=== PATIENT | female | born 1985 | race American Indian/Alaskan Native ===

== ENCOUNTER 2016-09-12 01:38 | Outpatient (CLI) | payer MEDICAID ==
[2016-09-12] MEDS ORDERED: VISTARIL PO ONE (04:00)
[2016-09-12] MEDS ORDERED: VISTARIL ONE (04:07)
--- NOTE | 2016-09-12 07:47 | Ultrasound Report ---
ULTRASOUND OB LIMITED History: well being, vaginal leaking Technique: Transabdominal ultrasound with Doppler interrogation. Gestation: Single Amniotic Fluid: Normal KEVIN = 13.7 cm Heart Rate: 137 BPM
--- NOTE | 2016-09-12 07:47 | Ultrasound Report ---
ULTRASOUND BIOPHYSICAL PROFILE: History: well being Technique: Transabdominal ultrasound with Doppler interrogation. 2 - breathing movements 2 - movements 2 - posture and tone 2 - Qualitative amniotic fluid volume 8 - TOTAL SCORE OF POSSIBLE 8 Heart Rate (bpm) 136
== END 2016-09-12 04:15 | disposition home or self-care (01) ==
LOC: TRG 01:38
PROVIDERS: ATTEND Obstetrics & Gynecology Gynecology
DX: O42.92 Full-term premature rupture of membranes, unspecified as to length of time between rupture and onset of labor (principal); O62.9 Abnormality of forces of labor, unspecified; Z3A.37 37 weeks gestation of pregnancy
CPT/HCPCS: 76815; 76819; Q0177

== ENCOUNTER 2016-10-01 16:31 | Outpatient (CLI) | payer MEDICAID ==
[2016-10-01 17:47] LABS: Hematocrit 35.9 % (30.3-42.9); Mean Corpuscular HGB Conc 34 % (30-34); Mean Corpuscular Hemoglobin 32 pg (28-32); Mean Corpuscular Volume 95 fl (79-97); Platelet Count 320 K/mm3 (140-440); Red Blood Count 3.77 M/mm3 (3.65-5.03); Red Cell Distribution Width 14.2 % (13.2-15.2); White Blood Count 5.1 K/mm3 (4.5-11.0)
[2016-10-01 18:09] LABS: Alanine Aminotransferase 7 units/L (7-56)
[2016-10-01 18:22] LABS: Bacteria,Urine 3+ /HPF (Negative); Bilirubin,Urine NEG (Negative); Blood,Urine NEG (Negative); Ketones,Urine NEG (Negative); Leukocyte Esterase,Urine NEG (Negative); Mucus,Urine FEW /HPF; Nitrite,Urine NEG (Negative); Protein,Urine <15 mg/dL mg/dL (Negative); Urobilinogen,Urine < 2.0 mg/dL (<2.0)
[2016-10-01 19:17] VITALS: BP 126/90
== END 2016-10-01 19:26 | disposition home or self-care (01) ==
LOC: TRG 16:31
PROVIDERS: ATTEND Obstetrics & Gynecology Gynecology
DX: O47.1 False labor at or after 37 completed weeks of gestation (principal); Z3A.39 39 weeks gestation of pregnancy
CPT/HCPCS: 36415; 81001; 82565; 83615; 84450; 84460; 84550; 85027

== ENCOUNTER 2016-10-04 10:24 | Inpatient (IN) | payer MEDICAID ==
--- NOTE | 2016-10-04 13:14 | Ultrasound Report ---
LIMITED OB ULTRASOUND: Gestation: vogel Position: cephalic KEVIN = 11.9 cm Heart Rate: 146 BPM Estimated age 40 weeks one day. BIOPHYSICAL PROFILE: 0 - breathing movements 2 - movements 2 - posture and tone 2 - Qualitative amniotic fluid volume 6 - TOTAL SCORE OF POSSIBLE 8 Heart Rate (bpm) 147
[2016-10-04] MEDS ORDERED: LACTATED RINGERS 1,000 ML ONE ×2 (16:42→17:40)
[2016-10-04] MEDS ORDERED: LACTATED RINGERS 1,000 ML IV SCH ×2 (19:00→21:00)
[2016-10-04 19:01] LABS: Hematocrit 36.7 % (30.3-42.9); Hemoglobin 12.4 gm/dl (10.1-14.3); Mean Corpuscular HGB Conc 34 % (30-34); Mean Corpuscular Hemoglobin 32 pg (28-32); Mean Corpuscular Volume 95 fl (79-97); Platelet Count 279 K/mm3 (140-440); Red Blood Count 3.86 M/mm3 (3.65-5.03); Red Cell Distribution Width 14.2 % (13.2-15.2); White Blood Count 8.1 K/mm3 (4.5-11.0)
[2016-10-04 19:25] LABS: Alanine Aminotransferase 7 units/L (7-56); Albumin 3.5 g/dL (3.9-5); Albumin/Globulin Ratio 0.9 %; Alkaline Phosphatase 125 units/L (35-129); Anion Gap 24 mmol/L; BUN/Creatinine Ratio 13.33; Blood Urea Nitrogen 4 mg/dL (7-17); Calcium 8.8 mg/dL (8.4-10.2); Carbon Dioxide 19 mmol/L (22-30); Chloride 94.8 mmol/L (98-107); Glucose 68 mg/dL (65-100); Potassium 3.7 mmol/L (3.6-5.0); Sodium 134 mmol/L (137-145); Total Protein 7.4 g/dL (6.3-8.2)
[2016-10-04] MEDS ORDERED: SUBLIMAZE IV ONE (20:00)
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
[2016-10-04] MEDS ORDERED: XYLOCAINE 2% INFILTRATI ONE (20:21)
[2016-10-04] MEDS ORDERED: MINERAL OIL PO PRN (20:21)
[2016-10-04] MEDS ORDERED: BRETHINE IVP PRN (20:21)
[2016-10-04] MEDS ORDERED: ZOFRAN IV PRN (20:21)
[2016-10-04] MEDS ORDERED: NARCAN 0.4 MG/1 ML IV PRN (20:21)
[2016-10-04] MEDS ORDERED: ePHEDrine SULFATE IV PRN (20:21)
[2016-10-04] MEDS ORDERED: BRETHINE SUB-Q PRN (20:21)
[2016-10-04] MEDS ORDERED: PITOCin/NS 20 UNIT/1000ML DRIP 20 UNITS/1,000 ML BAG IV SCH (21:00)
[2016-10-04] MEDS: SUBLIMAZE IV PRN (23:38)
[2016-10-05] MEDS: SUBLIMAZE IV PRN (02:05)
[2016-10-05] MEDS ORDERED: PITOCin/NS 30 UNIT/500ML 30 UNITS/500 ML BAG IV SCH (03:00)
[2016-10-05] MEDS ORDERED: ePHEDrine SULFATE ONE (04:04)
[2016-10-05] MEDS ORDERED: ePHEDrine SULFATE IV PRN (04:50)
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
[2016-10-05] MEDS ORDERED: fentaNYL-BUPIV 2 MCG/ML-0.125% 200 MCG/100 ML BAG EPIDURAL SCH (05:00)
--- NOTE | 2016-10-05 07:01 | Progress Note ---
Assessment and Plan A: 31-year-old 003 at 40+1 weeks with painful contractions -Category 1 P: -AROMed with clear fluid -Continue present care -Anticipate - Patient Problems (1) 40 weeks gestation of Current Visit: Yes Status: Acute (2) Uterine contractions Current Visit: Yes Status: Acute (3) Macrosomia Current Visit: Yes Status: Suspected Subjective - Subjective Date of service: 10/05/16 Principal diagnosis: IUP at 40+ wks Interval history: Patient is status post epidural, she is 7 cm at -2 station. Category 1 tracing Patient reports: new complaints, movement normal, contractions, no loss of fluid, no vaginal bleeding Objective - Vital Signs Vital Signs: Vital Signs - 12hr 10/04/16 10/04/16 10/04/16 19:00 19:09 19:14 Temperature Pulse Rate 113 H 123 H 126 H Respiratory Rate Blood Pressure Blood Pressure [Right Arm] O2 Sat by Pulse 100 99 97 Oximetry 10/04/16 10/04/16 10/04/16 19:17 19:18 19:19 Temperature 99 F Pulse Rate 122 H 117 H Respiratory 24 Rate Blood Pressure 138/80 Blood Pressure 121/56 [Right Arm] O2 Sat by Pulse 100 Oximetry 10/04/16 10/04/16 10/04/16 19:24 19:29 19:34 Temperature Pulse Rate 120 H 122 H 118 H Respiratory Rate Blood Pressure Blood Pressure [Right Arm] O2 Sat by Pulse 100 100 99 Oximetry 10/04/16 10/04/16 10/04/16 19:39 19:44 19:49 Temperature Pulse Rate 120 H 123 H 127 H Respiratory Rate Blood Pressure Blood Pressure [Right Arm] O2 Sat by Pulse 100 100 99 Oximetry 10/04/16 10/04/16 10/04/16 19:54 19:59 20:04 Temperature Pulse Rate 124 H 129 H 124 H Respiratory Rate Blood Pressure Blood Pressure [Right Arm] O2 Sat by Pulse 100 98 98 Oximetry 10/04/16 10/04/16 10/04/16 20:09 20:14 20:19 Temperature Pulse Rate 125 H 122 H 120 H Respiratory Rate Blood Pressure Blood Pressure [Right Arm] O2 Sat by Pulse 98 100 100 Oximetry 10/04/16 10/04/16 10/04/16 20:20 20:24 20:26 Temperature Pulse Rate 120 H 117 H Respiratory 14 Rate Blood Pressure 132/77 Blood Pressure [Right Arm] O2 Sat by Pulse 100 Oximetry 10/04/16 10/04/16 10/04/16 20:29 20:34 20:39 Temperature Pulse Rate 120 H 125 H 126 H Respiratory Rate Blood Pressure Blood Pressure [Right Arm] O2 Sat by Pulse 100 100 100 Oximetry 10/04/16 10/04/16 10/04/16 20:44 20:49 20:54 Temperature Pulse Rate 124 H 119 H 119 H Respiratory Rate Blood Pressure Blood Pressure [Right Arm] O2 Sat by Pulse 100 100 99 Oximetry 10/04/16 10/04/16 10/04/16 20:59 21:04 21:06 Temperature Pulse Rate 125 H 117 H 117 H Respiratory Rate Blood Pressure 124/71 Blood Pressure [Right Arm] O2 Sat by Pulse 98 99 Oximetry 10/04/16 10/04/16 10/04/16 21:09 21:14 21:19 Temperature Pulse Rate 120 H 119 H 120 H Respiratory Rate Blood Pressure Blood Pressure [Right Arm] O2 Sat by Pulse 99 99 99 Oximetry 10/04/16 10/04/16 10/04/16 21:24 21:29 21:34 Temperature Pulse Rate 123 H 120 H 121 H Respiratory Rate Blood Pressure Blood Pressure [Right Arm] O2 Sat by Pulse 99 99 99 Oximetry 10/04/16 10/04/16 10/04/16 21:39 21:44 21:49 Temperature Pulse Rate 122 H 125 H 122 H Respiratory Rate Blood Pressure Blood Pressure [Right Arm] O2 Sat by Pulse 99 99 99 Oximetry 10/04/16 10/04/16 10/04/16 21:50 21:54 21:59 Temperature Pulse Rate 121 H 122 H 120 H Respiratory Rate Blood Pressure 131/75 Blood Pressure [Right Arm] O2 Sat by Pulse 99 99 Oximetry 10/04/16 10/04/16 10/04/16 22:04 22:09 22:14 Temperature Pulse Rate 126 H 122 H 124 H Respiratory Rate Blood Pressure Blood Pressure [Right Arm] O2 Sat by Pulse 99 98 99 Oximetry 10/04/16 10/04/16 10/04/16 22:19 22:24 22:29 Temperature Pulse Rate 124 H 126 H 127 H Respiratory Rate Blood Pressure Blood Pressure [Right Arm] O2 Sat by Pulse 99 100 98 Oximetry 0710/04/16 10/04/16 22:34 22:39 22:44 Temperature Pulse Rate 123 H 120 H 129 H Respiratory Rate Blood Pressure 137/73 Blood Pressure [Right Arm] O2 Sat by Pulse 98 99 97 Oximetry 10/04/16 10/04/16 10/04/16 22:49 22:54 22:59 Temperature Pulse Rate 124 H 124 H 117 H Respiratory Rate Blood Pressure Blood Pressure [Right Arm] O2 Sat by Pulse 99 99 97 Oximetry 10/04/16 10/04/16 10/04/16 23:04 23:09 23:14 Temperature Pulse Rate 121 H 121 H 124 H Respiratory Rate Blood Pressure Blood Pressure [Right Arm] O2 Sat by Pulse 97 97 94 Oximetry 10/04/16 10/04/16 10/04/16 23:19 23:20 23:24 Temperature Pulse Rate 114 H 117 H 123 H Respiratory Rate Blood Pressure 144/85 Blood Pressure [Right Arm] O2 Sat by Pulse 97 96 Oximetry 10/04/16 10/04/16 10/04/16 23:29 23:34 23:38 Temperature Pulse Rate 124 H 119 H Respiratory 16 Rate Blood Pressure Blood Pressure [Right Arm] O2 Sat by Pulse 97 98 Oximetry 10/04/16 10/04/16 10/04/16 23:39 23:44 23:49 Temperature Pulse Rate 116 H 121 H 120 H Respiratory Rate Blood Pressure Blood Pressure [Right Arm] O2 Sat by Pulse 98 98 98 Oximetry 10/04/16 10/04/16 10/05/16 23:54 23:59 00:04 Temperature Pulse Rate 119 H 119 H 122 H Respiratory Rate Blood Pressure Blood Pressure [Right Arm] O2 Sat by Pulse 99 98 99 Oximetry 10/05/16 10/05/16 10/05/16 00:06 00:09 00:14 Temperature Pulse Rate 120 H 119 H 122 H Respiratory Rate Blood Pressure 118/67 Blood Pressure [Right Arm] O2 Sat by Pulse 99 99 Oximetry 10/05/16 10/05/16 10/05/16 00:19 00:24 00:29 Temperature Pulse Rate 120 H 121 H 120 H Respiratory Rate Blood Pressure Blood Pressure [Right Arm] O2 Sat by Pulse 99 99 99 Oximetry 10/05/16 10/05/16 10/05/16 00:40 00:45 00:50 Temperature Pulse Rate 129 H 120 H 111 H Respiratory Rate Blood Pressure Blood Pressure [Right Arm] O2 Sat by Pulse 97 98 99 Oximetry 10/05/16 10/05/16 10/05/16 00:55 01:00 01:05 Temperature Pulse Rate 119 H 114 H 111 H Respiratory Rate Blood Pressure 116/74 Blood Pressure [Right Arm] O2 Sat by Pulse 99 99 99 Oximetry 10/05/16 10/05/16 10/05/16 01:10 01:15 01:20 Temperature Pulse Rate 123 H 115 H 117 H Respiratory Rate Blood Pressure Blood Pressure [Right Arm] O2 Sat by Pulse 100 100 100 Oximetry 10/05/16 10/05/16 10/05/16 01:25 01:30 01:35 Temperature Pulse Rate 120 H 118 H 115 H Respiratory Rate Blood Pressure Blood Pressure [Right Arm] O2 Sat by Pulse 100 100 100 Oximetry 10/05/16 10/05/16 10/05/16 01:36 01:40 01:45 Temperature Pulse Rate 117 H 118 H 117 H Respiratory Rate Blood Pressure 109/68 Blood Pressure [Right Arm] O2 Sat by Pulse 100 100 Oximetry 10/05/16 10/05/16 10/05/16 01:50 01:55 02:00 Temperature Pulse Rate 117 H 114 H 120 H Respiratory Rate Blood Pressure Blood Pressure [Right Arm] O2 Sat by Pulse 100 100 100 Oximetry 10/05/16 10/05/16 10/05/16 02:05 02:06 02:10 Temperature 98.0 F Pulse Rate 109 H 111 H Respiratory 22 20 Rate Blood Pressure Blood Pressure [Right Arm] O2 Sat by Pulse 100 100 Oximetry 10/05/16 10/05/16 10/05/16 02:15 02:20 02:22 Temperature Pulse Rate 107 H 108 H 109 H Respiratory Rate Blood Pressure 107/57 Blood Pressure [Right Arm] O2 Sat by Pulse 100 100 Oximetry 10/05/16 10/05/16 10/05/16 02:25 02:30 02:35 Temperature Pulse Rate 107 H 106 H 110 H Respiratory Rate Blood Pressure Blood Pressure [Right Arm] O2 Sat by Pulse 100 100 100 Oximetry 10/05/16 10/05/16 10/05/16 02:40 02:45 02:50 Temperature Pulse Rate 113 H 106 H 107 H Respiratory Rate Blood Pressure Blood Pressure [Right Arm] O2 Sat by Pulse 100 100 100 Oximetry 10/05/16 10/05/16 10/05/16 02:55 03:00 03:05 Temperature Pulse Rate 106 H 106 H 108 H Respiratory Rate Blood Pressure Blood Pressure [Right Arm] O2 Sat by Pulse 100 100 100 Oximetry 10/05/16 10/05/16 10/05/16 03:07 03:10 03:15 Temperature Pulse Rate 108 H 99 H 106 H Respiratory Rate Blood Pressure 139/63 Blood Pressure [Right Arm] O2 Sat by Pulse 99 99 Oximetry 10/05/16 10/05/16 10/05/16 03:20 03:25 03:30 Temperature Pulse Rate 105 H 105 H 109 H Respiratory Rate Blood Pressure Blood Pressure [Right Arm] O2 Sat by Pulse 100 100 98 Oximetry 10/05/16 10/05/16 10/05/16 03:35 03:40 03:53 Temperature Pulse Rate 109 H 108 H 111 H Respiratory Rate Blood Pressure 121/72 Blood Pressure [Right Arm] O2 Sat by Pulse 99 99 Oximetry 10/05/16 10/05/16 10/05/16 03:54 03:59 04:04 Temperature Pulse Rate 111 H 107 H 105 H Respiratory Rate Blood Pressure Blood Pressure [Right Arm] O2 Sat by Pulse 96 96 97 Oximetry 10/05/16 10/05/16 10/05/16 04:10 04:13 04:15 Temperature Pulse Rate 105 H 104 H 97 H Respiratory Rate Blood Pressure 133/72 Blood Pressure [Right Arm] O2 Sat by Pulse 98 98 Oximetry 10/05/16 10/05/16 10/05/16 04:16 04:18 04:19 Temperature Pulse Rate 100 H 110 H 106 H Respiratory Rate Blood Pressure 150/81 133/65 135/64 Blood Pressure [Right Arm] O2 Sat by Pulse Oximetry 10/05/16 10/05/16 10/05/16 04:20 04:21 04:23 Temperature Pulse Rate 96 H 109 H 95 H Respiratory Rate Blood Pressure 124/72 116/69 Blood Pressure [Right Arm] O2 Sat by Pulse 99 94 Oximetry 10/05/16 10/05/16 10/05/16 04:25 04:27 04:29 Temperature Pulse Rate 111 H 105 H 108 H Respiratory Rate Blood Pressure 121/72 120/72 121/72 Blood Pressure [Right Arm] O2 Sat by Pulse 98 Oximetry 10/05/16 10/05/16 10/05/16 04:30 04:35 04:36 Temperature Pulse Rate 110 H 112 H 109 H Respiratory Rate Blood Pressure 122/84 Blood Pressure [Right Arm] O2 Sat by Pulse 99 98 Oximetry 10/05/16 10/05/16 10/05/16 04:37 04:39 04:40 Temperature Pulse Rate 100 H 103 H 103 H Respiratory Rate Blood Pressure 117/65 124/70 Blood Pressure [Right Arm] O2 Sat by Pulse 98 Oximetry 10/05/16 10/05/16 10/05/16 04:42 04:43 04:45 Temperature Pulse Rate 108 H 110 H 108 H Respiratory Rate Blood Pressure 111/66 123/69 118/59 Blood Pressure [Right Arm] O2 Sat by Pulse 97 Oximetry 10/05/16 10/05/16 10/05/16 04:47 04:49 04:50 Temperature Pulse Rate 104 H 107 H 108 H Respiratory Rate Blood Pressure 113/59 110/56 Blood Pressure [Right Arm] O2 Sat by Pulse 100 Oximetry 10/05/16 10/05/16 10/05/16 04:51 04:53 04:55 Temperature Pulse Rate 112 H 110 H 108 H Respiratory Rate Blood Pressure 115/64 118/68 Blood Pressure [Right Arm] O2 Sat by Pulse 100 Oximetry 10/05/16 10/05/16 10/05/16 04:56 04:58 05:00 Temperature Pulse Rate 112 H 113 H 106 H Respiratory Rate Blood Pressure 112/70 110/56 112/61 Blood Pressure [Right Arm] O2 Sat by Pulse 100 Oximetry 10/05/16 10/05/16 10/05/16 05:02 05:03 05:05 Temperature Pulse Rate 107 H 108 H 109 H Respiratory Rate Blood Pressure 115/58 106/55 111/55 Blood Pressure [Right Arm] O2 Sat by Pulse 100 Oximetry 10/05/16 10/05/16 10/05/16 05:08 05:10 05:13 Temperature Pulse Rate 112 H 105 H 109 H Respiratory Rate Blood Pressure 110/56 117/71 Blood Pressure [Right Arm] O2 Sat by Pulse 100 Oximetry 10/05/16 10/05/16 10/05/16 05:15 05:20 05:25 Temperature Pulse Rate 106 H 94 H 99 H Respiratory Rate Blood Pressure 124/67 Blood Pressure [Right Arm] O2 Sat by Pulse 99 100 100 Oximetry 10/05/16 10/05/16 10/05/16 05:30 05:35 05:40 Temperature Pulse Rate 95 H 102 H 103 H Respiratory Rate Blood Pressure Blood Pressure [Right Arm] O2 Sat by Pulse 100 100 100 Oximetry 10/05/16 10/05/16 10/05/16 05:45 05:48 05:50 Temperature Pulse Rate 98 H 102 H 97 H Respiratory Rate Blood Pressure 129/81 Blood Pressure [Right Arm] O2 Sat by Pulse 100 99 Oximetry 10/05/16 10/05/16 10/05/16 05:55 06:00 06:03 Temperature Pulse Rate 99 H 107 H 109 H Respiratory Rate Blood Pressure 133/67 Blood Pressure [Right Arm] O2 Sat by Pulse 98 99 Oximetry 10/05/16 10/05/16 10/05/16 06:05 06:10 06:15 Temperature Pulse Rate 105 H 105 H 97 H Respiratory Rate Blood Pressure Blood Pressure [Right Arm] O2 Sat by Pulse 98 96 97 Oximetry 10/05/16 10/05/16 10/05/16 06:19 06:20 06:25 Temperature Pulse Rate 110 H 98 H 102 H Respiratory Rate Blood Pressure Blood Pressure [Right Arm] O2 Sat by Pulse 89 100 99 Oximetry 10/05/16 10/05/16 10/05/16 06:30 06:35 06:40 Temperature Pulse Rate 102 H 102 H 103 H Respiratory Rate Blood Pressure Blood Pressure [Right Arm] O2 Sat by Pulse 99 100 100 Oximetry 10/05/16 10/05/16 10/05/16 06:45 06:47 06:50 Temperature Pulse Rate 99 H 103 H 99 H Respiratory Rate Blood Pressure 133/76 Blood Pressure [Right Arm] O2 Sat by Pulse 100 100 Oximetry 10/05/16 06:55 Temperature Pulse Rate 111 H Respiratory Rate Blood Pressure Blood Pressure [Right Arm] O2 Sat by Pulse 100 Oximetry - Exam FHR: category 1 Cervical Dilatation: 7 station: -2 - Labs Labs: Abnormal Labs 10/04/16 17:00 Sodium 134 L Chloride 94.8 L Carbon Dioxide 19 L BUN 4 L Creatinine 0.3 L Albumin 3.5 L Laboratory Results - last 24 hr 10/04/16 10/04/16 10/04/16 17:00 17:00 17:00 WBC 8.1 RBC 3.86 Hgb 12.4 Hct 36.7 MCV 95 MCH 32 MCHC 34 RDW 14.2 Plt Count 279 Sodium 134 L Potassium 3.7 Chloride 94.8 L Carbon Dioxide 19 L Anion Gap 24 BUN 4 L Creatinine 0.3 L Estimated GFR > 60 BUN/Creatinine Ratio 13.33 Glucose 68 Calcium 8.8 Total Bilirubin 0.90 AST 15 ALT 7 Alkaline Phosphatase 125 Total Protein 7.4 Albumin 3.5 L Albumin/Globulin Ratio 0.9 Blood Type O POSITIVE Antibody Screen TNR DESIREE Antibody Screen Negative
[2016-10-05] MEDS ORDERED: CYTOTEC ONE (07:30)
[2016-10-05] MEDS ORDERED: CYTOTEC PR ONE ×2 (07:35→07:47)
--- NOTE | 2016-10-05 07:45 | Procedure Note ---
OB Delivery Note - Delivery Date of Delivery: 10/05/16 Surgeon: ROCK RED Estimated blood loss: 200cc - Vaginal Delivery presentation: vertex Delivery position: OA Delivery induction: oxytocin Delivery augmentation: rupture of membranes, pitocin Delivery monitor: external FHT, external uterine Route of delivery: Delivery placenta: spontaneous Delivery cord: nuchal cord, 3 umbilical vessels Episiotomy: none Delivery laceration: none Anesthesia: epidural - A at 1 minute: 8 at 5 minutes: 9 Infant Gender: Male (Del @ 07:35, weight is 8#1 or 3661 g)
[2016-10-05] MEDS ORDERED: TUCKS PAD TP PRN (07:47)
[2016-10-05] MEDS ORDERED: PHENERGAN PO PRN (07:47)
[2016-10-05] MEDS ORDERED: DULCOLAX PR PRN (07:47)
[2016-10-05] MEDS ORDERED: ANUCORT-HC PR PRN (07:47)
[2016-10-05] MEDS ORDERED: BENADRYL PO PRN (07:47)
[2016-10-05] MEDS ORDERED: TYLENOL PO PRN (07:47)
[2016-10-05] MEDS ORDERED: MILK OF MAGNESIA PO PRN (07:47)
[2016-10-05] MEDS ORDERED: LANSINOH TP PRN (07:47)
[2016-10-05] MEDS ORDERED: PHENERGAN PR PRN (07:47)
[2016-10-05] MEDS ORDERED: ZOFRAN IV PRN (07:47)
[2016-10-05] MEDS ORDERED: SODIUM CHLORIDE FLUSH SYRINGE 10 ML IV NR (08:00)
[2016-10-05 09:54] LABS: Urine Drugs of Abuse Note Disclamer
[2016-10-05] MEDS: MOTRIN PO SCH ×2 (16:10→22:44)
[2016-10-05] MEDS: PRENATAL VITAMIN PO SCH (16:10)
[2016-10-05] MEDS: COLACE PO SCH ×2 (16:10→22:44)
[2016-10-05] MEDS: FEOSOL PO SCH ×2 (16:10→22:44)
[2016-10-05 21:53] LABS: Hematocrit 32.6 % (30.3-42.9)
[2016-10-06] MEDS: SENOKOT S PO SCH ×2 (02:12→22:00)
[2016-10-06] MEDS: MOTRIN PO SCH ×3 (06:10→18:15)
--- NOTE | 2016-10-06 08:59 | Progress Note ---
Subjective Date of service: 10/06/16 Principal diagnosis: IUP at 40+ wks Interval history: The epidural catheter has been removed. Patient is doing well. Objective - Constitutional Vitals: Vital Signs - 12hr 10/05/16 23:00 Temperature 97.6 F Pulse Rate [ 85 From Monitor] Respiratory 18 Rate Blood Pressure 108/63 [Right Arm] - Labs CBC & Chem 7: 10/05/16 20:51 10/04/16 17:00
--- NOTE | 2016-10-06 09:47 | Progress Note ---
Assessment and Plan PPD# 1 s/p Doing well P: -Continue routine care -Anticipate discharge in 24-48 hours - Patient Problems (1) (normal spontaneous vaginal delivery) Current Visit: Yes Status: Acute (2) 40 weeks gestation of Current Visit: Yes Status: Acute (3) Uterine contractions Current Visit: Yes Status: Acute (4) Macrosomia Current Visit: Yes Status: Suspected Subjective - Subjective Date of service: 10/06/16 Principal diagnosis: PPD# 1 s/p Interval history: Patient seen and examined, stable doing well. No issues Patient reports: appetite normal, voiding normally, pain well controlled, flatus , ambulating normally, no dizzy ambulation, no nauseated Mobile: doing well Objective - Vital Signs Latest vital signs: Vital Signs Temp Pulse Resp BP 10/05/16 23:00 97.6 F 85 18 108/63 10/05/16 17:00 98.7 F 82 18 125/77 Intake and Output 10/05/16 10/06/16 10/06/16 22:59 06:59 14:59 Intake Total 730 Output Total 1700 Balance -970 Intake: IV 250 PITOCin/NS 20 UNIT/1000ML 250 DRIP 20 units In 1,000 ml @ 125 mls/hr IV DIRECT SHAJI Rx#:[id number] Oral 480 Output: Urine 1700 Void 1700 Other: Total, Intake Amount 480 Total, Output Amount 800 - Exam Abdomen: Present: normal appearance, soft. Absent: distention, tenderness, guarding, rigidity Uterus: Present: fundal height below umbilicus. Absent: tenderness Extremities: Present: normal
--- NOTE | 2016-10-06 09:48 | Discharge Summary ---
Providers - Providers Date of Admission: 10/04/16 10:40 Date of discharge: 10/07/16 Attending physician: ROCK RED Primary care physician: ROCK RED Hospitalization Reason for admission: active labor Delivery: Episiotomy: none Laceration: none Other procedures: none complications: none Discharge diagnosis: IUP at term delivered baby: male Hospital course: Uncomplicated hospital course Condition at discharge: Good Disposition: DC-01 TO HOME OR SELFCARE - Discharge Diagnoses (1) (normal spontaneous vaginal delivery) Status: Acute (2) 40 weeks gestation of Status: Acute (3) Uterine contractions Status: Acute (4) Macrosomia Status: Suspected Plan - Discharge Medications Prescriptions: HYDROcodone/APAP 5-325 [[place] 5/325] 1 each PO Q6HR PRN #7 tablet PRN Reason: Pain Ibuprofen [Motrin 600 MG tab] 600 mg PO Q8H PRN #30 tablet PRN Reason: Pain Multivitamin with Iron [Multivitamins with Iron] 1 each PO DAILY #30 tablet - Provider Discharge Summary Activity: no sex for 6 weeks, no heavy lifting 4 weeks, no strenuous exercise Diet: routine Additional instructions: [] Smoking cessation referral if applicable(refer to patient education folder for contact #) [] Refer to [facility] Booklet Call your doctor immediately for: * Fever > 100.5 * Heavy vaginal bleeding ( >1 pad per hour) * Severe persistent headache * Shortness of breath * Reddened, hot, painful area to leg or breast * Drainage or odor from incision. * Keep incision clean and dry at all times and follow doctor's instructions regarding bathing/showering - Follow up plan Follow up: ROCK RED MD [Primary Care Provider] - 6 Weeks
[2016-10-06] MEDS: FEOSOL PO SCH ×2 (12:40→22:01)
[2016-10-06] MEDS: COLACE PO SCH ×2 (12:40→22:01)
[2016-10-06] MEDS: PRENATAL VITAMIN PO SCH (12:40)
[2016-10-07] MEDS: MOTRIN PO SCH ×4 (00:55→18:37)
--- NOTE | 2016-10-07 09:08 | Admit Criteria Form ---
Admission Criteria Documentation: OBSTETRIC AND GYNECOLOGIC DISEASE GRG Clinical Indications for Admission to Inpatient Care (Place 'X' for any and all applicable criteria): Hospital admission is needed for appropriate care of the patient because of 1 or more of the following (1)(2)(3): [ ]I. Hemodynamic instability, as indicated by 1 or more of the following (1)( 2)(3)(4)(5): [ ]a) Vital signs or other findings not as expected for chronic patient condition or baseline [ ]b) Instability indicated by 1 or more of the following: [ ]i) Hypotension [ ]ii) Symptomatic tachycardia unresponsive to treatment (eg, analgesia, fluids, sedation as indicated) [ ]iii) Inadequate perfusion indicated by 1 or more of the following: [ ]A. Lactic acidosis (greater than 2 mmol/ L) [ ]B. New abnormal capillary refill ( greater than 3 seconds) [ ]C. Reduced urine output [ ]D. New altered mental status [ ]iv) Orthostatic vital sign changes unresponsive to treatment (eg, fluids) [ ]v) Multiple IV fluid boluses required to maintain adequate blood pressure or perfusion [ ]vi) IV inotropic or vasopressor medication required to maintain adequate blood pressure or perfusion [ ]II. Obstetric infection requiring hospitalization indicated by 1 or more of the following(13)(14): [ ]a) Chorioamnionitis [ ]b) Endometritis (except mild endometritis) [ ]c) Pelvic abscess [ ]d) Peritonitis [ ]e) Septic pelvic thrombophlebitis [ ]III. Amniotic fluid or pulmonary embolism(4)(5)(6) [ ]IV. Suspected peritonitis or ectopic requiring monitoring beyond scope of 24 hours or observation care(7)(8) [ ]V. compromise requiring hospitalization indicated by ALL of the following(9)(10): [ ]a) compromise indicated by 1 or more of the following(11): [ ]i) Abnormal heart rate monitoring [ ]ii) Abnormal contraction stress test [ ]iii) Abnormal biophysical profile [ ]iv) Abnormal Doppler flow in vessels (ie, Doppler velocimetry) (12) [ ]b) Persistence of compromise indicators during evaluation and observation monitoring [ ]. Ovarian hyperstimulation syndrome requiring hospitalization[A] indicated by ALL of the following(15): [ ]a) Recent ovarian stimulation with gonadotropins, or evidence on ultrasound of spontaneous emergence of large number of ovarian follicles [ ]b) Evidence of severe ovarian hyperstimulation syndrome indicated by 1 or more of the following: [ ]i) Abdominal pain unresponsive to oral therapy [ ]ii) Acute respiratory distress syndrome [ ]iii) Electrolyte imbalance ( eg, hyponatremia, hyperkalemia) [ ]iv) Elevated liver enzymes [ ]v) Evidence of thromboembolism [ ]vi) Hemoconcentration (hematocrit greater than 45 % (0.45)) [ ]vii) Inability to maintain oral intake adequate to prevent hemoconcentration [ ]viii) Marked hypotension from baseline (eg, SBP 20 mmHg below patients usual pressure) [ ]ix) Oliguria or anuria [ ]x) Ovarian torsion [ ]xi) Pleural or pericardial effusion on x-ray or echocardiogram [ ]xii) Rapid increase in serum creatinine to greater than 1.2 mg/dL (106 micromoles/L) or creatinine clearance less than 50 mL/min/1.73m2 (0.84 mL/ sec/1.73m2) [ ]xiii) Ruptured ovarian cyst with hemorrhage [ ]xiv) Severe abdominal pain or peritoneal signs [ ]xv) Tense ascites that cannot be managed with paracentesis in outpatient setting [ ]VII.Pelvic infection requiring hospitalization indicated by 1 or more of the following (16): [ ]a) Outpatient treatment has failed or is not appropriate (eg, inpatient monitoring required) [ ]b) Pelvic abscess [ ]c) Surgical emergency cannot be excluded (eg, rigid abdomen) [ ]d) Vomiting precluding outpatient and observation care management VIII. loss complications requiring inpatient medical treatment indicated by 1 or more of the following (4)(7)(9): [ ]a) Fever [ ]b) Peritonitis [ ]c) Sepsis [ ]d) Severe abdominal pain [ ]IX. or patient requiring monitoring for severe heart failure, pulmonary disease, or other comorbid condition (eg, peripartum cardiomyopathy) (4)(17) [ ]X. patient with rupture of membranes requiring hospitalization indicated by ANY ONE of the following: [ ]a) Chorioamnionitis, cloudy amniotic fluid, or other evidence of infection [ ]b) compromise or other need for monitoring (11) [ ]c) Gestation longer than 23 weeks and ANY ONE of the following: [ ]i) Abnormal (noncephalic) presentation [ ]ii) Inadequate home environment (eg, home too far from hospital, unable to rapidly return to hospital) [ ]d) Temperature greater than 100.4 degrees F (38 degrees C)( oral) [ ]e) Threatened labor requiring monitoring beyond scope (eg, over 24 hours) of observation Care [ ] XI. complications, including severe lacerations, infections, or retained placenta (19) [ ] XII.Uterine bleeding with high-risk features indicated by ANY ONE of the following (4): [ ]a) Active major hemorrhage (eg, hemorrhage) [ ]b) Coagulopathy with active bleeding [ ]c) Gestational trophoblastic disease (eg, molar ) (20 ) [ ]d) (longer than 23 weeks) and ANY ONE of the following: [ ]i) Pain [ ]ii) Placental abruption, known or suspected [ ]iii) Placenta accrete, known or suspected(21) [ ]iv) Placenta previa, known or suspected [ ]v) Vasa previa [ ]e) Severe anemia [X]XIII. Obstetric or Gynecologic Disease, condition or symptom for which ANY ONE of the following: [ ]a) Emergency and observation care have failed or are not considered appropriate ( Also use General Criteria: Observation Care Criteria as appropriate) [X]b) Presence of a General Admission Criteria or Pediatric General Admission Criteria The original [facility] content created by [facility] has been revised. The portions of the content which have been revised are identified through the use of italic text or in bold, and [facility] has neither reviewed nor approved the modified material.All other unmodified content is copyright [facility]. Please see references footnoted in the original [facility] edition 2016 Admission Criteria Met: Yes
[2016-10-07] MEDS: PRENATAL VITAMIN PO SCH (10:00)
[2016-10-07] MEDS: FEOSOL PO SCH (10:00)
[2016-10-07] MEDS: COLACE PO SCH (10:01)
[2016-10-07 17:59] VITALS: BP 118/70
== END 2016-10-07 18:45 | disposition home or self-care (01) | DRG 775 ==
LOC: TRG 10:24 → LD 10:40 → OB 10-05 09:15 → OBSVTOIN 10-07 14:14
PROVIDERS: ADMIT Obstetrics & Gynecology Gynecology; ATTEND Obstetrics & Gynecology Gynecology
PROC: 10E0XZZ Delivery of Products of Conception, External Approach (ICD-10-PCS; principal; 2016-10-05)
PROC: 3E033VJ Introduction of Other Hormone into Peripheral Vein, Percutaneous Approach (ICD-10-PCS; 2016-10-05)
PROC: 10907ZC Drainage of Amniotic Fluid, Therapeutic from Products of Conception, Via Natural or Artificial Opening (ICD-10-PCS; 2016-10-05)
PROC: 3E0R3CZ (ICD-10-PCS; 2016-10-05)
PROC: 00HU33Z Insertion of Infusion Device into Spinal Canal, Percutaneous Approach (ICD-10-PCS; 2016-10-05)
DX: O69.81X0 Labor and delivery complicated by cord around neck, without compression, not applicable or unspecified (principal); O62.9 Abnormality of forces of labor, unspecified; O36.63X0 Maternal care for excessive fetal growth, third trimester, not applicable or unspecified; O99.344 Other mental disorders complicating childbirth; F32.9 Major depressive disorder, single episode, unspecified; O99.214 Obesity complicating childbirth; E66.01 Morbid (severe) obesity due to excess calories; Z3A.40 40 weeks gestation of pregnancy; Z37.0 Single live birth; Z68.41 Body mass index [BMI] 40.0-44.9, adult
CPT/HCPCS: 36415; 76815; 76816; 76819; 80053; 80307; 85014; 85018; 85027; 86850; 86900; 86901; 99211; A6250; G0378; G0463; J2405; J2590; J3010; J7120

== ENCOUNTER 2017-05-04 08:44 | Emergency (ER) | payer MEDICAID | END 2017-05-04 09:45 | disposition left against medical advice (07) | LOC: ED 08:44 | DX: L02.92 Furuncle, unspecified (principal); Z53.21 Procedure and treatment not carried out due to patient leaving prior to being seen by health care provider ==

== ENCOUNTER 2018-12-06 19:41 | Outpatient (CLI) | payer MEDICAID ==
[2018-12-06 20:14] VITALS: BP 128/69
[2018-12-06] MEDS ORDERED: LACTATED RINGERS 500 ML IV ONE (20:41)
[2018-12-06] MEDS ORDERED: FLEET ENEMA PR ONE (21:00)
[2018-12-07] MEDS ORDERED: LACTATED RINGERS 1,000 ML ONE (00:03)
== END 2018-12-07 00:26 | disposition home or self-care (01) ==
LOC: TRG 19:41
PROVIDERS: ATTEND Obstetrics & Gynecology
DX: O99.612 Diseases of the digestive system complicating pregnancy, second trimester (principal); K59.00 Constipation, unspecified; O47.02 False labor before 37 completed weeks of gestation, second trimester; O09.522 Supervision of elderly multigravida, second trimester; Z3A.26 26 weeks gestation of pregnancy; Z87.891 Personal history of nicotine dependence
CPT/HCPCS: 99212; G0463; J7120

== ENCOUNTER 2019-02-01 09:43 | Outpatient (CLI) | payer MEDICAID ==
[2019-02-01 10:42] LABS: Bilirubin,Urine NEG (Negative); Blood,Urine NEG (Negative); Color,Urine Yellow (Yellow); Mucus,Urine FEW /HPF; Protein,Urine <15 mg/dL mg/dL (Negative); Urobilinogen,Urine < 2.0 mg/dL (<2.0)
--- NOTE | 2019-02-01 14:34 | Ultrasound Report ---
Limited OB Ultrasound Biophysical profile HISTORY: NRFHT. TECHNIQUE: Grayscale and color Doppler imaging performed. COMPARISON: No recent relevant ultrasound is available for comparison. FINDINGS: There is a single intrauterine gestation which is cephalic in presentation. KEVIN is 8.5 cm. Heart rate is 138 bpm. On biophysical profile, this fetus received a score of 2 out of 2 for breathing movement, movem ent, posture/tone, and qualitative KEVIN. Heart rate was 142 bpm. Total score was 8 out of 8. IMPRESSION: 1. Single viable intrauterine gestation as above. 2. Normal biophysical profile. Signer Name: Lj Meyers MD Signed: 02/01/2019 2:29 PM Workstation Name: [id number]
== END 2019-02-01 13:22 | disposition home or self-care (01) ==
LOC: TRG 09:43
PROVIDERS: ATTEND Obstetrics & Gynecology
DX: O47.03 False labor before 37 completed weeks of gestation, third trimester (principal); Z3A.34 34 weeks gestation of pregnancy
CPT/HCPCS: 59025; 76815; 76819; 81001

== ENCOUNTER 2019-02-12 17:14 | Outpatient (CLI) | payer MEDICAID ==
[2019-02-12 17:53] VITALS: BP 121/80
[2019-02-12] MEDS ORDERED: LACTATED RINGERS 500 ML IV ONE (18:28)
--- NOTE | 2019-02-13 00:09 | Ultrasound Report ---
ULTRASOUND BIOPHYSICAL PROFILE INDICATION / CLINICAL INFORMATION: LEAKING FLUID. COMPARISON: None available. FINDINGS: BREATHING MOVEMENT = 2 GROSS BODY MOVEMENT = 2 TONE = 2 QUALITATIVE AMNIOTIC FLUID VOLUME = 2 TOTAL BIOPHYSICAL SCORE = 10/22 AMNIOTIC FLUID INDEX (cm) = 10.3 PRESENTATION: Cephalic. HEART RATE (beats per minute): 133 IMPRESSION: 1. biophysical profile = 10/22 Signer Name: Tejinder Coleman MD Signed: 02/13/2019 12:04 AM Workstation Name: [email or web address]
== END 2019-02-12 21:28 | disposition home or self-care (01) ==
LOC: TRG 17:14
PROVIDERS: ATTEND Obstetrics & Gynecology
DX: O42.913 Preterm premature rupture of membranes, unspecified as to length of time between rupture and onset of labor, third trimester (principal); O62.9 Abnormality of forces of labor, unspecified; Z3A.36 36 weeks gestation of pregnancy; Z87.891 Personal history of nicotine dependence
CPT/HCPCS: 59025; 76815; 76819; J7120; 96360; 96361

== ENCOUNTER 2019-02-27 05:07 | Outpatient (CLI) | payer MEDICAID ==
[2019-02-27 07:30] LABS: Bacteria,Urine 2+ /HPF (Negative); Bilirubin,Urine NEG (Negative); Blood,Urine NEG (Negative); Color,Urine Yellow (Yellow); Hyaline Casts,Urine 1 /LPF; Mucus,Urine FEW /HPF; Protein,Urine <15 mg/dL mg/dL (Negative); Urobilinogen,Urine < 2.0 mg/dL (<2.0)
[2019-02-27 07:47] LABS: Hematocrit 35.4 % (30.3-42.9); Hemoglobin 12.1 gm/dl (10.1-14.3); Mean Corpuscular HGB Conc 34 % (30-34); Mean Corpuscular Volume 94 fl (79-97); Platelet Count 256 K/mm3 (140-440); Red Blood Count 3.76 M/mm3 (3.65-5.03)
[2019-02-27 07:57] VITALS: BP 132/94
[2019-02-27 08:00] LABS: Alanine Aminotransferase < 5 units/L (7-56); Albumin 3.4 g/dL (3.9-5); BUN/Creatinine Ratio 17; Blood Urea Nitrogen 5 mg/dL (7-17); Calcium 8.5 mg/dL (8.4-10.2); Hemolysis Index 0
[2019-02-27 08:01] LABS: Uric Acid 2.4 mg/dL (3.5-7.6)
--- NOTE | 2019-03-01 07:05 | Event Note ---
Date: 02/27/19 Brief note for 02/27/19 (late entry): Patient is a [facility] patient who came in to L&D triage on 02/27/19 at 38 weeks gestation complaining of diarrhea and contractions. I saw patient very briefly and ordered initial labs and EFM. I came back to see patient again but patient had already been discharged home by MD according to triage nurse.
== END 2019-02-27 08:50 | disposition home or self-care (01) ==
LOC: TRG 05:07
PROVIDERS: ATTEND Obstetrics & Gynecology
DX: O62.9 Abnormality of forces of labor, unspecified (principal); Z3A.38 38 weeks gestation of pregnancy
CPT/HCPCS: 36415; 80053; 81001; 83615; 84550; 85027

== ENCOUNTER 2019-03-03 13:37 | Outpatient (CLI) | payer MEDICAID ==
[2019-03-03 16:07] LABS: Bilirubin,Urine NEG (Negative); Blood,Urine NEG (Negative); Color,Urine Yellow (Yellow); Mucus,Urine FEW /HPF; Protein,Urine <15 mg/dL mg/dL (Negative); Urobilinogen,Urine < 2.0 mg/dL (<2.0)
[2019-03-03 16:10] LABS: Hematocrit 35.2 % (30.3-42.9); Hemoglobin 12.3 gm/dl (10.1-14.3); Mean Corpuscular HGB Conc 35 % (30-34); Mean Corpuscular Volume 94 fl (79-97); Platelet Count 298 K/mm3 (140-440); Red Blood Count 3.73 M/mm3 (3.65-5.03); Red Cell Distribution Width 13.8 % (13.2-15.2)
[2019-03-03] MEDS ORDERED: ACETAMINOPHEN 325 MG TAB PO ONE (16:10)
[2019-03-03 16:15] LABS: Alanine Aminotransferase 6 units/L (7-56); Uric Acid 2.7 mg/dL (3.5-7.6)
[2019-03-03 16:58] VITALS: BP 128/74
== END 2019-03-03 17:22 | disposition home or self-care (01) ==
LOC: TRG 13:37
PROVIDERS: ATTEND Obstetrics & Gynecology
DX: O47.1 False labor at or after 37 completed weeks of gestation (principal); O09.513 Supervision of elderly primigravida, third trimester; Z3A.39 39 weeks gestation of pregnancy
CPT/HCPCS: 36415; 59025; 81001; 82565; 83615; 84450; 84460; 84550; 85027

== ENCOUNTER 2019-03-11 12:15 | Inpatient (IN) | payer MEDICAID ==
--- NOTE | 2019-03-11 15:35 | History and Physical Report ---
History of Present Illness Date of examination: 03/11/19 Chief complaint: Labor History of present illness: Pt is a 33 yo BF EDC 03/09/19; EGA 40 2/7 weeks presents to L&D complaining of RUC's q 3-5 mins. She received care at [facility] since 15 weeks and co-managed by [facility] for AMA and cardiac issues. records are available and GBS is Negative. Past History Past Medical History: no pertinent history Past Surgical History: no surgical history Family/Genetic History: other (Hepatitis) Social history: no significant social history, single - Obstetrical History Expected Date of Delivery: 03/09/19 Actual Gestation: 40 Week(s) 2 Day(s) : 6 Medications and Allergies Allergies Allergy/AdvReac Type Severity Reaction Status Date / Time No Known Allergies Allergy Verified 02/27/19 07:01 Home Medications Medication Instructions Recorded Confirmed Last Taken Type Folic Acid 1 tab PO DAILY 09/07/14 03/03/19 Unknown History Ferrous Sulfate [Feosol 325 MG tab] 325 mg PO BID #60 tablet 09/10/14 03/03/19 Unknown Rx [id number]/Iron Fum/Folic/Docusate 1 each PO QDAY #30 tablet 09/10/14 03/03/19 03/02/19 Rx [ 19 Tablet] HYDROcodone/APAP 5-325 [[place] 1 each PO Q6HR PRN #7 tablet 10/05/16 03/03/19 Unknown Rx 5/325] Ibuprofen [Motrin 600 MG tab] 600 mg PO Q8H PRN #30 tablet 10/05/16 03/03/19 Unknown Rx Multivitamin with Iron 1 each PO DAILY #30 tablet 10/05/16 03/03/19 Unknown Rx [Multivitamins with Iron] Review of Systems All systems: negative - Vital Signs Vital signs: Vital Signs Temp Resp BP 98.3 F 18 133/79 03/11/19 13:05 03/11/19 13:05 03/11/19 13:05 Temp Pulse Resp BP Pulse Ox 98.3 F 87 18 133/79 97 03/11/19 13:05 03/11/19 13:39 03/11/19 13:05 03/11/19 13:05 03/11/19 13:39 - Physical Exam Breasts: Positive: deferred Abdomen: Positive: normal appearance Genitourinary (Female): Positive: normal external genitalia Uterus: Positive: enlarged Extremities: Positive: normal - Obstetrical FHR: category 1 Uterine Contraction Monitor Mode: External Cervical Dilatation: 3 (per nurse) Cervical Effacement Percentage: 70 (per nurse) station: -2 Uterine Contraction Pattern: Regular Uterine Tone Measurement Phase: Contraction Uterine Contraction Intensity: Moderate Results Result Diagrams: 03/11/19 15:33 All other labs normal. Assessment and Plan - Patient Problems (1) 40 weeks gestation of Onset Date: 03/11/19 Current Visit: No Status: Acute Plan to address problem: A: IUP @ 40 2/7 week in labor AMA P: Admit to L&D for expectant vaginal delivery (2) AMA (advanced maternal age) multigravida 35+ Onset Date: 03/11/19 Current Visit: Yes Status: Acute Qualifiers: Trimester: third trimester Qualified Code(s): O09.523 - Supervision of elderly multigravida, third trimester
[2019-03-11] MEDS ORDERED: MINERAL OIL 30 ML ORAL LIQD PO PRN (15:40)
[2019-03-11] MEDS ORDERED: TERBUTALINE 1 MG/1 ML INJ SUB-Q PRN (15:40)
[2019-03-11] MEDS ORDERED: fentaNYL 100 MCG/2 ML INJ IV PRN (15:40)
[2019-03-11] MEDS ORDERED: TERBUTALINE 1 MG/1 ML INJ IVP PRN (15:40)
[2019-03-11] MEDS ORDERED: ePHEDrine SULFATE 50 MG/1 ML INJ IV PRN (15:40)
[2019-03-11] MEDS ORDERED: LIDOCAINE (2%) 20 MG/1 ML VIAL 20 ML MDV INFILTRATI ONE ×2 (15:40→19:53)
[2019-03-11] MEDS ORDERED: ONDANSETRON 4 MG/2 ML INJ IV PRN ×2 (15:40→20:05)
[2019-03-11] MEDS ORDERED: BUTORPHANOL 2 MG/1 ML INJ IV PRN (15:40)
[2019-03-11] MEDS ORDERED: OXYTOCIN 20 UNIT/1000ML DRIP 20 UNITS/1,000 ML BAG IV SCH ×3 (16:00→21:00)
[2019-03-11] MEDS ORDERED: OXYTOCIN DRIP 30 UNITS/500 ML BAG IV SCH ×2 (16:00)
[2019-03-11] MEDS ORDERED: LACTATED RINGERS 1,000 ML IV SCH (16:00)
[2019-03-11 16:09] LABS: Hematocrit 35.3 % (30.3-42.9); Hemoglobin 12.2 gm/dl (10.1-14.3); Mean Corpuscular HGB Conc 34 % (30-34); Mean Corpuscular Volume 95 fl (79-97); Platelet Count 334 K/mm3 (140-440); Red Blood Count 3.72 M/mm3 (3.65-5.03); Red Cell Distribution Width 14.4 % (13.2-15.2)
--- NOTE | 2019-03-11 19:59 | Procedure Note ---
OB Delivery Note - Delivery Date of Delivery: 03/11/19 Surgeon: TRACE TSANG Estimated blood loss: other (150ml) - Vaginal Delivery presentation: vertex Delivery position: OA Intrapartum events: meconium Delivery induction: none Delivery augmentation: rupture of membranes, pitocin Delivery monitor: external FHT, external uterine Route of delivery: Delivery placenta: spontaneous Delivery cord: nuchal cord (x1) Episiotomy: none Delivery laceration: 1st degree (perineal) Delivery repair: vicryl Anesthesia: local Delivery comments: delivered OA, nuchal cord x 1 easily reduced, and infant placed on Mom's chest for [id number] bonding and delyed cord clamping, cut by Dad - Infant A at 1 minute: 8 at 5 minutes: 9 Gender: Male (4202gms)
[2019-03-11] MEDS ORDERED: PROMETHAZINE 25 MG RECT SUPP PR PRN (20:05)
[2019-03-11] MEDS ORDERED: MAGNESIUM HYDROXIDE (MOM) ORAL LIQD UDC PO PRN (20:05)
[2019-03-11] MEDS ORDERED: LANOLIN/ZINC/DIMETHICONE (LANSINOH) 7 GM TP PRN (20:05)
[2019-03-11] MEDS ORDERED: diphenhydrAMINE 25 MG CAP PO PRN (20:05)
[2019-03-11] MEDS ORDERED: PROMETHAZINE 25 MG TAB PO PRN (20:05)
[2019-03-11] MEDS ORDERED: WITCH HAZEL/ GLYCERIN PAD TP PRN (20:05)
[2019-03-11] MEDS ORDERED: ACETAMINOPHEN 325 MG TAB PO PRN (20:05)
[2019-03-11] MEDS: IBUPROFEN 600 MG TAB PO SCH (23:44)
[2019-03-11] MEDS: FERROUS SULFATE 325 MG TAB PO SCH (23:45)
[2019-03-11] MEDS: DOCUSATE SODIUM 100 MG CAP PO SCH (23:45)
[2019-03-12] MEDS ORDERED: MEASLES, MUMPS & RUBELLA 12,500 UNIT/0.5 ML VACCINE SUB-Q ONE (06:00)
[2019-03-12] MEDS ORDERED: TETANUS,DIPH,PERTUSS(ACELL) VACCINE 0.5 ML SYRINGE IM ONE (06:00)
[2019-03-12] MEDS: IBUPROFEN 600 MG TAB PO SCH ×3 (06:20→17:19)
[2019-03-12] MEDS: HYDROcodone/ACETAMINOPHEN 5-325 MG TAB PO PRN ×2 (10:02→23:49)
[2019-03-12] MEDS: FERROUS SULFATE 325 MG TAB PO SCH ×2 (10:02→23:49)
[2019-03-12] MEDS: DOCUSATE SODIUM 100 MG CAP PO SCH ×2 (10:02→23:49)
[2019-03-12] MEDS: PRENATAL VIT27-FE FUMARATE-FOLIC ACID VIT TAB PO SCH (10:02)
[2019-03-12 10:27] LABS: Hematocrit 32.1 % (30.3-42.9); Hemoglobin 10.8 gm/dl (10.1-14.3)
--- NOTE | 2019-03-12 12:40 | Progress Note ---
Assessment and Plan - Patient Problems (1) 40 weeks gestation of Onset Date: 03/11/19 Current Visit: No Status: Resolved (2) AMA (advanced maternal age) multigravida 35+ Onset Date: 03/11/19 Current Visit: Yes Status: Chronic Qualifiers: Trimester: third trimester Qualified Code(s): O09.523 - Supervision of elderly multigravida, third trimester (3) (normal spontaneous vaginal delivery) Onset Date: 03/12/19 Current Visit: No Status: Resolved Plan to address problem: A: S/P - PPD#1 Doing well Asymptomatic anemia - stable P: May go home tomorrow. Subjective - Subjective Date of service: 03/12/19 Principal diagnosis: s/p - PPD #1 Interval history: Pt is feeling well without complaints. Bleeding improved. Patient reports: appetite normal, voiding normally, pain well controlled, flatus, ambulating normally, no dizzy ambulation, no nauseated : doing well, nursing well, bottle feeding Objective - Vital Signs Latest vital signs: Vital Signs Temp Pulse Resp BP BP Pulse Ox 03/12/19 08:48 97.8 F 75 18 117/73 99 03/12/19 04:00 98.6 F 77 16 122/69 03/11/19 22:55 98.3 F 89 52 H 123/78 03/11/19 22:19 77 145/79 03/11/19 22:03 82 129/70 03/11/19 21:49 86 132/77 03/11/19 21:23 81 143/73 03/11/19 21:13 78 134/62 03/11/19 21:02 77 119/69 03/11/19 20:53 81 119/73 03/11/19 20:43 85 117/69 03/11/19 20:33 83 119/58 03/11/19 20:22 74 122/56 03/11/19 20:17 83 117/59 03/11/19 20:12 83 116/62 03/11/19 20:07 83 119/61 03/11/19 20:05 98.9 F 82 16 118/60 03/11/19 20:04 81 118/60 03/11/19 20:02 123/61 03/11/19 19:57 91 H 113/55 03/11/19 19:52 75 120/58 03/11/19 19:47 87 138/78 03/11/19 17:30 97.8 F 03/11/19 16:17 82 123/82 03/11/19 13:39 87 97 03/11/19 13:34 85 99 03/11/19 13:29 86 99 03/11/19 13:24 93 H 99 03/11/19 13:05 98.3 F 18 133/79 Intake and Output 03/11/19 03/12/19 03/12/19 22:59 06:59 14:59 Intake Total 700 Output Total 1400 Balance -700 Intake: Oral 400 Intake, Free Water 300 Output: Urine 1400 Void 1400 Other: Total, Intake Amount 200 Total, Output Amount 600 # Voids Void 1 Estimated Blood Loss 150 - Exam Breasts: Present: deferred Abdomen: Present: normal appearance, soft Uterus: Present: normal, firm, fundal height below umbilicus Extremities: Present: normal - Labs Labs: Abnormal lab results 03/11/19 Range/Units 15:33 MCH 33 H (28-32) pg Laboratory Tests 03/11/19 03/11/19 03/12/19 15:33 15:33 10:10 WBC 5.0 RBC 3.72 Hgb 12.2 10.8 Hct 35.3 32.1 MCV 95 MCH 33 H MCHC 34 RDW 14.4 Plt Count 334 Blood Type O POSITIVE Antibody Screen Negative
[2019-03-13] MEDS: IBUPROFEN 600 MG TAB PO SCH ×2 (06:37→11:21)
[2019-03-13 10:31] VITALS: BP 135/85
--- NOTE | 2019-03-13 10:34 | Discharge Summary ---
Providers - Providers Date of Admission: 03/11/19 12:16 Date of discharge: 03/13/19 Attending physician: TRACE TSANG Primary care physician: TRACE TSANG Hospitalization Reason for admission: active labor, IUP at term Delivery: Episiotomy: none Laceration: 1st degree Incision: normal Other procedures: none complications: none Discharge diagnosis: IUP at term delivered baby: male Hospital course: Unremarkable. Condition at discharge: Good Disposition: DC-01 TO HOME OR SELFCARE - Discharge Diagnoses (1) 40 weeks gestation of Status: Resolved (2) AMA (advanced maternal age) multigravida 35+ Status: Chronic Qualifiers: Trimester: third trimester Qualified Code(s): O09.523 - Supervision of elderly multigravida, third trimester (3) (normal spontaneous vaginal delivery) Status: Resolved Plan - Discharge Medications Prescriptions: Ferrous Sulfate [Feosol 325 MG tab] 325 mg PO BID #60 tablet Ibuprofen [Motrin 600 MG tab] 600 mg PO Q6HR #30 tablet Vit-Fe Fumar-FA [ Vitamin] 1 each PO QDAY #30 tablet - Provider Discharge Summary Activity: routine, no sex for 6 weeks, no heavy lifting 4 weeks, no strenuous exercise Diet: routine Instructions: routine Additional instructions: [] Smoking cessation referral if applicable(refer to patient education folder for contact #) [] Refer to [facility]'s [facility] Center Booklet Call your doctor immediately for: * Fever > 100.5 * Heavy vaginal bleeding ( >1 pad per hour) * Severe persistent headache * Shortness of breath * Reddened, hot, painful area to leg or breast * Drainage or odor from incision. * Keep incision clean and dry at all times and follow doctor's instructions regarding bathing/showering - Follow up plan Follow up: TRACE TSANG MD [Primary Care Provider] - 6 Weeks NICOLE JOHNSON NP [Referring] - 6 Weeks
[2019-03-13] MEDS: FERROUS SULFATE 325 MG TAB PO SCH (11:21)
[2019-03-13] MEDS: PRENATAL VIT27-FE FUMARATE-FOLIC ACID VIT TAB PO SCH (11:21)
[2019-03-13] MEDS: DOCUSATE SODIUM 100 MG CAP PO SCH (13:47)
== END 2019-03-13 11:40 | disposition home or self-care (01) | DRG 775 ==
LOC: TRG 12:15 → LD 12:16 → TRG 12:16 → OB 22:43
PROVIDERS: ADMIT Obstetrics & Gynecology; ATTEND Obstetrics & Gynecology
PROC: 10E0XZZ Delivery of Products of Conception, External Approach (ICD-10-PCS; principal; 2019-03-11)
PROC: 0HQ9XZZ Repair Perineum Skin, External Approach (ICD-10-PCS; 2019-03-11)
DX: O77.0 Labor and delivery complicated by meconium in amniotic fluid (principal); O69.81X0 Labor and delivery complicated by cord around neck, without compression, not applicable or unspecified; O70.0 First degree perineal laceration during delivery; Z3A.40 40 weeks gestation of pregnancy; Z37.0 Single live birth; O90.81 Anemia of the puerperium; D64.9 Anemia, unspecified
CPT/HCPCS: 36415; 85014; 85018; 85027; 86850; 86900; 86901; G0378; A6250; J2590; J7120

== ENCOUNTER 2020-06-13 12:53 | Emergency (ER) | payer MEDICAID ==
--- NOTE | 2020-06-13 15:05 | Event Note ---
ED Screening Note ED Screening Note: nausea, diarrhea, SOB that began this morning +lower abd pain no cough no fever +sick contact with daughter with stomach virus no recent travel no recent abx no water from different source, no camping no pmxh no allergies to meds LNMP: 04/29/2020 This initial assessment/diagnostic orders/clinical plan/treatment(s) is/are subject to change based on patients health status, clinical progression and re- assessment by fellow clinical providers in the ED. Further treatment and workup at subsequent clinical providers discretion. Patient/guardian urged not to elope from the ED as their condition may be serious if not clinically assessed and managed. Initial orders include: labs, UA, CXR
[2020-06-13 16:07] LABS: Basophils % (Auto) 0.2 % (0.0-1.8); Eosinophils # (Auto) 0.1 K/mm3 (0.0-0.4); Eosinophils % (Auto) 1.3 % (0.0-4.3); Hematocrit 39.8 % (30.3-42.9); Hemoglobin 13.5 gm/dl (10.1-14.3); Lymphocytes # (Auto) 1.5 K/mm3 (1.2-5.4); Lymphocytes % (Auto) 29.6 % (13.4-35.0); Mean Corpuscular HGB Conc 34 % (30-34); Mean Corpuscular Volume 97 fl (79-97); Monocytes # (Auto) 0.3 K/mm3 (0.0-0.8); Monocytes % (Auto) 6.2 % (0.0-7.3); Platelet Count 333 K/mm3 (140-440); Red Blood Count 4.09 M/mm3 (3.65-5.03); Red Cell Distribution Width 13.1 % (13.2-15.2)
[2020-06-13 16:14] LABS: Alanine Aminotransferase 9 units/L (7-56); Albumin 4.2 g/dL (3.9-5); Blood Urea Nitrogen 10 mg/dL (7-17); Calcium 8.5 mg/dL (8.4-10.2); Hemolysis Index 3
[2020-06-13 16:33] LABS: BUN/Creatinine Ratio 25
--- NOTE | 2020-06-13 17:01 | XRay Report ---
CHEST PA AND LATERAL VIEWS INDICATION: SOB, diarrhea. COMPARISON: None. FINDINGS: Support devices: None. Heart: Within normal limits. Lungs/Pleura: No acute pulmonary or pleural findings. IMPRESSION: 1. No acute findings. Signer Name: Medardo Garcia MD Signed: 06/13/2020 4:57 PM Workstation Name: [id number]
[2020-06-13 17:15] LABS: Bacteria,Urine 1+ /HPF (Negative); Bilirubin,Urine NEG (Negative); Blood,Urine NEG (Negative); Color,Urine Straw (Yellow); Mucus,Urine FEW /HPF; Protein,Urine <15 mg/dL mg/dL (Negative); Urobilinogen,Urine < 2.0 mg/dL (<2.0)
--- NOTE | 2020-06-13 18:13 | Emergency Department Report ---
ED N/V/D HPI - General Chief complaint: Abdominal Pain Stated complaint: ABD VIRUS/SOB/ABD PAIN Time Seen by Provider: 06/13/20 15:03 Source: patient Mode of arrival: Ambulatory Limitations: No Limitations - History of Present Illness Initial comments: 35-year-old -Swedish female presents emerged department complaining of 1 day onset nausea 1 vomiting and some diarrhea which she thought might be secondary to a viral stomach illness but cannot emergency department for further evaluation and treatment options. Symptoms have improved since being here. MD complaint: diarrhea -: Gradual Associated Abdominal Pain: Yes Location: LUQ (Left-sided abdominal discomfort when present ) Radiation: none Severity: mild, moderate Quality: aching, dull Consistency: intermittent Improves with: none Worsens with: none Context: possible food poisoning Associated Symptoms: nausea/vomiting. denies: chest pain, cough, diaphoresis, fever/chills, headaches, malaise, rash, shortness of breath, syncope, weakness - Related Data Home Medications Medication Instructions Recorded Confirmed Last Taken Folic Acid 1 tab PO DAILY 09/07/14 03/03/19 Unknown Previous Rx's Medication Instructions Recorded Last Taken Type Ferrous Sulfate [Feosol 325 MG tab] 325 mg PO BID #60 tablet 09/10/14 Unknown Rx [id number]/Iron Fum/Folic/Docusate 1 each PO QDAY #30 tablet 09/10/14 03/02/19 Rx [ 19 Tablet] HYDROcodone/APAP 5-325 [[place] 1 each PO Q6HR PRN #7 tablet 10/05/16 Unknown Rx 5/325] Ibuprofen [Motrin 600 MG tab] 600 mg PO Q8H PRN #30 tablet 10/05/16 Unknown Rx Multivitamin with Iron 1 each PO DAILY #30 tablet 10/05/16 Unknown Rx [Multivitamins with Iron] Ferrous Sulfate [Feosol 325 MG tab] 325 mg PO BID #60 tablet 03/13/19 Unknown Rx Ibuprofen [Motrin 600 MG tab] 600 mg PO Q6HR #30 tablet 03/13/19 Unknown Rx Vit-Fe Fumar-FA [ 1 each PO QDAY #30 tablet 03/13/19 Unknown Rx Vitamin] Hyoscyamine Subl [Levsin Sl 0.125 0.125 mg SL Q6HR PRN #20 tab 06/13/20 Unknown Rx TAB] Ondansetron [Zofran ODT TAB] 8 mg PO Q12HR #14 tab.rapdis 06/13/20 Unknown Rx Allergies Allergy/AdvReac Type Severity Reaction Status Date / Time No Known Allergies Allergy Verified 06/13/20 14:45 ED Review of Systems ROS: Stated complaint: ABD VIRUS/SOB/ABD PAIN Other details as noted in HPI Comment: All other systems reviewed and negative ED Past Medical Hx - Past Medical History Previous Medical History?: No Hx Hypertension: No Hx Congestive Heart Failure: No Hx Diabetes: No Hx Deep Vein Thrombosis: No Hx Renal Disease: No Hx Sickle Cell Disease: No Hx Seizures: No Hx Asthma: No Hx COPD: No Hx HIV: No - Surgical History Past Surgical History?: No - Social History Smoking Status: Never Smoker Substance Use Type: None - Medications Home Medications: Home Medications Medication Instructions Recorded Confirmed Last Taken Type Folic Acid 1 tab PO DAILY 09/07/14 03/03/19 Unknown History Ferrous Sulfate [Feosol 325 MG tab] 325 mg PO BID #60 tablet 09/10/14 03/03/19 Unknown Rx [id number]/Iron Fum/Folic/Docusate 1 each PO QDAY #30 tablet 09/10/14 03/03/19 03/02/19 Rx [ 19 Tablet] HYDROcodone/APAP 5-325 [[place] 1 each PO Q6HR PRN #7 tablet 10/05/16 03/03/19 Unknown Rx 5/325] Ibuprofen [Motrin 600 MG tab] 600 mg PO Q8H PRN #30 tablet 10/05/16 03/03/19 Unknown Rx Multivitamin with Iron 1 each PO DAILY #30 tablet 10/05/16 03/03/19 Unknown Rx [Multivitamins with Iron] Ferrous Sulfate [Feosol 325 MG tab] 325 mg PO BID #60 tablet 03/13/19 Unknown Rx Ibuprofen [Motrin 600 MG tab] 600 mg PO Q6HR #30 tablet 03/13/19 Unknown Rx Vit-Fe Fumar-FA [ 1 each PO QDAY #30 tablet 03/13/19 Unknown Rx Vitamin] Hyoscyamine Subl [Levsin Sl 0.125 0.125 mg SL Q6HR PRN #20 tab 06/13/20 Unknown Rx TAB] Ondansetron [Zofran ODT TAB] 8 mg PO Q12HR #14 tab.rapdis 06/13/20 Unknown Rx ED Physical Exam - General Limitations: No Limitations General appearance: alert, in no apparent distress - Head Head exam: Present: atraumatic, normocephalic - Eye Eye exam: Present: normal appearance, PERRL Pupils: Present: normal accommodation - ENT ENT exam: Present: normal exam, mucous membranes moist, TM's normal bilaterally - Neck Neck exam: Present: normal inspection, full ROM - Respiratory Respiratory exam: Present: normal lung sounds bilaterally. Absent: respiratory distress, wheezes, rales, chest wall tenderness, accessory muscle use - Cardiovascular Cardiovascular Exam: Present: regular rate, normal rhythm. Absent: systolic murmur, diastolic murmur, rubs, gallop - GI/Abdominal GI/Abdominal exam: Present: soft, tenderness (Vague tenderness with deep palpation. No masses appreciated no tenderness to McBurney's, no Rovsing, no Valente Friedman, no [place] sign. No masses), normal bowel sounds. Absent: organomegaly, mass, bruit, pulsatile mass, hernia - Extremities Exam Extremities exam: Present: normal inspection - Back Exam Back exam: Present: normal inspection - Neurological Exam Neurological exam: Present: alert, oriented X3 - Psychiatric Psychiatric exam: Present: normal affect, normal mood - Skin Skin exam: Present: warm, dry, intact, normal color. Absent: rash ED Course Vital Signs 06/13/20 14:49 Temperature 98.6 F Pulse Rate 78 Respiratory 18 Rate Blood Pressure 141/89 O2 Sat by Pulse 100 Oximetry ED Medical Decision Making - Lab Data Result diagrams: 06/13/20 15:32 06/13/20 15:32 Lab Results 06/13/20 06/13/20 06/13/20 Range/Units 15:32 15:32 15:32 WBC 5.0 (4.5-11.0) K/mm3 RBC 4.09 (3.65-5.03) M/mm3 Hgb 13.5 (10.1-14.3) gm/dl Hct 39.8 (30.3-42.9) % MCV 97 (79-97) fl MCH 33 H (28-32) pg MCHC 34 (30-34) % RDW 13.1 L (13.2-15.2) % Plt Count 333 (140-440) K/mm3 Lymph % (Auto) 29.6 (13.4-35.0) % Bledso[place] % (Auto) 6.2 (0.0-7.3) % Eos % (Auto) 1.3 (0.0-4.3) % Baso % (Auto) 0.2 (0.0-1.8) % Lymph # (Auto) 1.5 (1.2-5.4) K/mm3 [place] # (Auto) 0.3 (0.0-0.8) K/mm3 Eos # (Auto) 0.1 (0.0-0.4) K/mm3 Baso # (Auto) 0.0 (0.0-0.1) K/mm3 Seg Neutrophils % 62.7 (40.0-70.0) % Seg Neutrophils # 3.1 (1.8-7.7) K/mm3 Sodium 135 L (137-145) mmol/L Potassium 4.0 (3.6-5.0) mmol/L Chloride 101.2 (98-107) mmol/L Carbon Dioxide 26 (22-30) mmol/L Anion Gap 12 mmol/L BUN 10 (7-17) mg/dL Creatinine 0.4 L (0.6-1.2) mg/dL Estimated GFR > 60 ml/min BUN/Creatinine Ratio 25 % Glucose 82 (65-100) mg/dL Calcium 8.5 (8.4-10.2) mg/dL Total Bilirubin 0.70 (0.1-1.2) mg/dL AST 13 (5-40) units/L ALT 9 (7-56) units/L Alkaline Phosphatase 63 (35-129) units/L Total Protein 7.4 (6.3-8.2) g/dL Albumin 4.2 (3.9-5) g/dL Albumin/Globulin Ratio 1.3 % Lipase 17 (13-60) units/L HCG, Qual Negative (Negative) Urine Color (Yellow) Urine Turbidity (Clear) Urine pH (5.0-7.0) Ur Specific [place] (1.003-1.030) Urine Protein (Negative) mg/dL Urine Glucose (UA) (Negative) mg/dL Urine Ketones (Negative) mg/dL Urine Blood (Negative) Urine Nitrite (Negative) Urine Bilirubin (Negative) Urine Urobilinogen (<2.0) mg/dL Ur Leukocyte Esterase (Negative) Urine WBC (Auto) (0.0-6.0) /HPF Urine RBC (Auto) (0.0-6.0) /HPF U Epithel Cells (Auto) (0-13.0) /HPF Urine Bacteria (Auto) (Negative) /HPF Urine Mucus /HPF 06/13/20 Range/Units 15:44 WBC (4.5-11.0) K/mm3 RBC (3.65-5.03) M/mm3 Hgb (10.1-14.3) gm/dl Hct (30.3-42.9) % MCV (79-97) fl MCH (28-32) pg MCHC (30-34) % RDW (13.2-15.2) % Plt Count (140-440) K/mm3 Lymph % (Auto) (13.4-35.0) % [place] % (Auto) (0.0-7.3) % Eos % (Auto) (0.0-4.3) % Baso % (Auto) (0.0-1.8) % Lymph # (Auto) (1.2-5.4) K/mm3 [place] # (Auto) (0.0-0.8) K/mm3 Eos # (Auto) (0.0-0.4) K/mm3 Baso # (Auto) (0.0-0.1) K/mm3 Seg Neutrophils % (40.0-70.0) % Seg Neutrophils # (1.8-7.7) K/mm3 Sodium (137-145) mmol/L Potassium (3.6-5.0) mmol/L Chloride (98-107) mmol/L Carbon Dioxide (22-30) mmol/L Anion Gap mmol/L BUN (7-17) mg/dL Creatinine (0.6-1.2) mg/dL Estimated GFR ml/min BUN/Creatinine Ratio % Glucose (65-100) mg/dL Calcium (8.4-10.2) mg/dL Total Bilirubin (0.1-1.2) mg/dL AST (5-40) units/L ALT (7-56) units/L Alkaline Phosphatase (35-129) units/L Total Protein (6.3-8.2) g/dL Albumin (3.9-5) g/dL Albumin/Globulin Ratio % Lipase (13-60) units/L HCG, Qual (Negative) Urine Color Straw (Yellow) Urine Turbidity Clear (Clear) Urine pH 6.0 (5.0-7.0) Ur Specific [place] 1.006 (1.003-1.030) Urine Protein <15 mg/dl (Negative) mg/dL Urine Glucose (UA) Neg (Negative) mg/dL Urine Ketones Neg (Negative) mg/dL Urine Blood Neg (Negative) Urine Nitrite Neg (Negative) Urine Bilirubin Neg (Negative) Urine Urobilinogen < 2.0 (<2.0) mg/dL Ur Leukocyte Esterase Neg (Negative) Urine WBC (Auto) 2.0 (0.0-6.0) /HPF Urine RBC (Auto) 3.0 (0.0-6.0) /HPF U Epithel Cells (Auto) 3.0 (0-13.0) /HPF Urine Bacteria (Auto) 1+ (Negative) /HPF Urine Mucus Few /HPF - Radiology Data Radiology results: report reviewed [address] [place] [id number] XRay Report Signed Patient: RUTH APPLE MR#: [id number] : 1985 Acct:[id number] Age/Sex: 35 / F ADM Date: 06/13/20 Loc: ED Attending Dr: Ordering Physician: DANIEL YAO Date of Service: 06/13/20 Procedure(s): XR chest routine 2V Accession Number(s): [id number] cc: DANIEL YAO Fluoro Time In Minutes: CHEST PA AND LATERAL VIEWS INDICATION: SOB, diarrhea. COMPARISON: None. FINDINGS: Support devices: None. Heart: Within normal limits. Lungs/Pleura: No acute pulmonary or pleural findings. IMPRESSION: 1. No acute findings. Signer Name: Medardo Garcia MD Signed: 06/13/2020 4:57 PM Workstation Name: [id number] Transcribed By: NENITA Dictated By: Medardo Garcia MD Electronically Authenticated By: Medardo Garcia MD Signed Date/Time: 06/13/201656 DD/ 55 TD/TT: - Medical Decision Making This patient presents with abdominal pain of unclear etiology. Their evaluation has not identified a emergent etiology for the abdominal pain. Specifically, given the very benign exam, normal laboratory studies, and lack of significant risk factors, I have a very low suspicion for appendicitis, ischemic bowel, bowel perforation, or any other life threatening disease. I have discussed with the patient the level of uncertainty with undifferentiated abdominal pain and clearly explained the need to follow-up as noted on the discharge instructions, or return to the Emergency Department immediately if the pain worsens, develops fever, persistent and uncontrollable vomiting, or for any new symptoms or concerns. I discussed with the patient that this presentation today for abdominal pain could represent a significant risk for an acute abdominal process. Although the tests in the ED were essentially normal, there is still a possibility of a process such as appendicitis, diverticulitis, cholecystitis, ulcer, early bowel obstruction, mesenteric ischemia, kidney stone, or even kidney infection which could subsequently cause disability or . The patient understands that they must return within 24 hours for a recheck or see their physician within 24 hours for re-exam due to the possibility of significant surgical or medical process. Ms. Lopez is now sitting in the bed no acute distress eating crackers and keeping them down states that she feels fine returning home and follow-up should her condition worsens. Critical care attestation.: If time is entered above; I have spent that time in minutes in the direct care of this critically ill patient, excluding procedure time. ED Disposition Clinical Impression: Nausea, Diarrhea, Abdominal pain Disposition: - TO HOME OR SELFCARE Is pt being admited?: No Does the pt Need Aspirin: No Condition: Stable Instructions: Viral Gastroenteritis, Adult, Nausea, Adult, Hcam-[id number], Diarrhea, Adult, Ozuc-ev-Kcus, Probiotics, Abdominal Pain (ED) Prescriptions: Hyoscyamine Subl [Levsin Sl 0.125 TAB] 0.125 mg SL Q6HR PRN #20 tab PRN Reason: abdominal cramps and spasms Ondansetron [Zofran ODT TAB] 8 mg PO Q12HR #14 tab.jayson Referrals: [facility] [Other] - 3-5 Days ESTUARDO BOOTH MD [Staff Physician] - 3-5 Days
[2020-06-13 19:45] VITALS: BP 125/71
== END 2020-06-13 19:30 | disposition home or self-care (01) ==
LOC: ED 12:53
DX: R19.7 Diarrhea, unspecified (principal); R11.2 Nausea with vomiting, unspecified; R10.12 Left upper quadrant pain; Z79.1 Long term (current) use of non-steroidal anti-inflammatories (NSAID); Z79.899 Other long term (current) drug therapy
CPT/HCPCS: 36415; 71046; 80053; 81001; 83690; 84703; 85025

== ENCOUNTER 2021-04-17 19:16 | Emergency (ER) | payer MEDICAID ==
--- NOTE | 2021-04-17 20:36 | XRay Report ---
XR chest routine 2V INDICATION / CLINICAL INFORMATION: chest pain. COMPARISON: 06/13/2020. FINDINGS: SUPPORT DEVICES: None. HEART /PULMONARY VASCULATURE: No significant abnormality. LUNGS / PLEURA: 1.8 cm tubular radiodensity overlies the right hilar region, not definitely seen on l ateral view, may be postoperative or may be external to the patient. No acute airspace consolidation. No sizable pleural effusion. No pneumothorax. ADDITIONAL FINDINGS: No significant additional findings. IMPRESSION: 1. No acute findings. 2. Incidental findings as above. Signer Name: Talha Monge MD Signed: 04/17/2021 8:32 PM Workstation Name: [id number]
[2021-04-17 20:52] LABS: Hematocrit 40.1 % (30.3-42.9); Hemoglobin 12.5 gm/dl (10.1-14.3); Mean Corpuscular HGB Conc 31 % (30-34); Mean Corpuscular Volume 96 fl (79-97); Platelet Count 387 K/mm3 (140-440); Red Blood Count 4.21 M/mm3 (3.65-5.03); Red Cell Distribution Width 13.1 % (13.2-15.2)
[2021-04-17 21:12] LABS: Blood Urea Nitrogen 13 mg/dL (7-17); Calcium 9.3 mg/dL (8.4-10.2); Hemolysis Index 5
[2021-04-17 21:13] LABS: BUN/Creatinine Ratio 22
[2021-04-17 23:06] LABS: Basophils % (Manual) 0 % (0.0-1.8); Promyelocytes # (Manual) 0.1 K/mm3; Total Cells Counted 100
[2021-04-17 23:08] LABS: Platelet Estimate Consistent w Auto
--- NOTE | 2021-04-17 23:46 | Ultrasound Report ---
ULTRASOUND ABDOMEN, LIMITED (RIGHT UPPER QUADRANT) INDICATION: RUQ pain. COMPARISON: None available. FINDINGS: Pancreas: The pancreas is not well-visualized. Liver: Normal. Gallbladder: Normal. Bile ducts: Normal. Common Bile Duct measures 3 mm. Free fluid: None. Additional Findings: Normal caliber of the abdominal aorta. Right kidney is unremarkable. IMPRESSION: 1. No sonographic abnormality of the right upper quadrant. 2. Please note the pancreas was not well visualized. Signer Name: Mariajose Lemon MD Signed: 04/17/2021 11:42 PM Workstation Name: [id number]
--- NOTE | 2021-04-18 00:37 | Emergency Department Report ---
ED Abdominal Pain HPI - General Chief Complaint: Chest Pain Stated Complaint: CHEST PAIN Time Seen by Provider: 04/17/21 21:29 Source: patient Mode of arrival: Ambulatory Limitations: No Limitations - History of Present Illness Initial Comments: Patient is a 35-year-old F [place] female with no significant past medical history is presenting with chief complaint of chest pain however on examination she is actually having right upper quadrant pain. Patient states has been off and on for the past 4 days. States she does have some associated mild nausea. No vomiting no diarrhea fevers chills cough cold or congestion. There is no exertional component to the patient's pain. Patient states after eating she does feel the pain. Severity scale (0 -10): 3 - Related Data Home Medications Medication Instructions Recorded Confirmed Last Taken Folic Acid 1 tab PO DAILY 09/07/14 03/03/19 Unknown Previous Rx's Medication Instructions Recorded Last Taken Type Ferrous Sulfate [Feosol 325 MG tab] 325 mg PO BID #60 tablet 09/10/14 Unknown Rx Hzi122/Iron Fum/Folic/Docusate 1 each PO QDAY #30 tablet 09/10/14 03/02/19 Rx [ 19 Tablet] HYDROcodone/APAP 5-325 [[place] 1 each PO Q6HR PRN #7 tablet 10/05/16 Unknown Rx 5/325] Ibuprofen [Motrin 600 MG tab] 600 mg PO Q8H PRN #30 tablet 10/05/16 Unknown Rx Multivitamin with Iron 1 each PO DAILY #30 tablet 10/05/16 Unknown Rx [Multivitamins with Iron] Ferrous Sulfate [Feosol 325 MG tab] 325 mg PO BID #60 tablet 03/13/19 Unknown Rx Ibuprofen [Motrin 600 MG tab] 600 mg PO Q6HR #30 tablet 03/13/19 Unknown Rx Vit-Fe Fumar-FA [ 1 each PO QDAY #30 tablet 03/13/19 Unknown Rx Vitamin] Hyoscyamine Subl [Levsin Sl 0.125 0.125 mg SL Q6HR PRN #20 tab 06/13/20 Unknown Rx TAB] Ondansetron [Zofran ODT TAB] 8 mg PO Q12HR #14 tab.rapdis 06/13/20 Unknown Rx Ondansetron [Zofran Odt] 4 mg PO Q8HR #10 tab.rapdis 04/18/21 Unknown Rx Pantoprazole [Protonix] 40 mg PO QDAY #30 tablet 04/18/21 Unknown Rx traMADoL [Ultram] 50 mg PO Q6HR PRN #12 tablet 04/18/21 Unknown Rx Allergies Allergy/AdvReac Type Severity Reaction Status Date / Time No Known Allergies Allergy Verified 06/13/20 14:45 ED Review of Systems ROS: Stated complaint: CHEST PAIN Other details as noted in HPI Comment: All other systems reviewed and negative ED Past Medical Hx - Past Medical History Hx Hypertension: No Hx Congestive Heart Failure: No Hx Diabetes: No Hx Deep Vein Thrombosis: No Hx Renal Disease: No Hx Sickle Cell Disease: No Hx Seizures: No Hx Asthma: No Hx COPD: No Hx HIV: No - Surgical History Past Surgical History?: No - Social History Smoking Status: Never Smoker Substance Use Type: None - Medications Home Medications: Home Medications Medication Instructions Recorded Confirmed Last Taken Type Folic Acid 1 tab PO DAILY 09/07/14 03/03/19 Unknown History Ferrous Sulfate [Feosol 325 MG tab] 325 mg PO BID #60 tablet 09/10/14 03/03/19 Unknown Rx [id number]/Iron Fum/Folic/Docusate 1 each PO QDAY #30 tablet 09/10/14 03/03/19 03/02/19 Rx [ 19 Tablet] HYDROcodone/APAP 5-325 [[place] 1 each PO Q6HR PRN #7 tablet 10/05/16 03/03/19 Unknown Rx 5/325] Ibuprofen [Motrin 600 MG tab] 600 mg PO Q8H PRN #30 tablet 10/05/16 03/03/19 Unknown Rx Multivitamin with Iron 1 each PO DAILY #30 tablet 10/05/16 03/03/19 Unknown Rx [Multivitamins with Iron] Ferrous Sulfate [Feosol 325 MG tab] 325 mg PO BID #60 tablet 03/13/19 Unknown Rx Ibuprofen [Motrin 600 MG tab] 600 mg PO Q6HR #30 tablet 03/13/19 Unknown Rx Vit-Fe Fumar-FA [ 1 each PO QDAY #30 tablet 03/13/19 Unknown Rx Vitamin] Hyoscyamine Subl [Levsin Sl 0.125 0.125 mg SL Q6HR PRN #20 tab 06/13/20 Unknown Rx TAB] Ondansetron [Zofran ODT TAB] 8 mg PO Q12HR #14 tab.rapdis 06/13/20 Unknown Rx Ondansetron [Zofran Odt] 4 mg PO Q8HR #10 tab.rapdis 04/18/21 Unknown Rx Pantoprazole [Protonix] 40 mg PO QDAY #30 tablet 04/18/21 Unknown Rx traMADoL [Ultram] 50 mg PO Q6HR PRN #12 tablet 04/18/21 Unknown Rx ED Physical Exam - General Limitations: No Limitations General appearance: alert, in no apparent distress - Head Head exam: Present: atraumatic, normocephalic - Eye Eye exam: Present: normal appearance - ENT ENT exam: Present: mucous membranes moist - Neck Neck exam: Present: normal inspection - Respiratory Respiratory exam: Present: normal lung sounds bilaterally. Absent: respiratory distress, wheezes, rales, rhonchi - Cardiovascular Cardiovascular Exam: Present: regular rate, normal rhythm, normal heart sounds. Absent: systolic murmur, diastolic murmur, rubs, gallop - GI/Abdominal GI/Abdominal exam: Present: soft, normal bowel sounds. Absent: distended, tenderness, guarding, rebound - Extremities Exam Extremities exam: Present: normal inspection - Back Exam Back exam: Present: normal inspection - Neurological Exam Neurological exam: Present: alert, oriented X3 - Psychiatric Psychiatric exam: Present: normal affect, normal mood - Skin Skin exam: Present: warm, dry, intact, normal color. Absent: rash ED Course Vital Signs 04/17/21 20:07 Temperature 98.1 F Pulse Rate 65 Respiratory 17 Rate Blood Pressure 129/78 [Right] O2 Sat by Pulse 99 Oximetry ED Medical Decision Making - Lab Data Result diagrams: 04/17/21 20:36 04/17/21 20:36 Lab Results 04/17/21 04/17/21 Range/Units 20:36 20:36 WBC 5.3 (4.5-11.0) K/mm3 RBC 4.21 (3.65-5.03) M/mm3 Hgb 12.5 (10.1-14.3) gm/dl Hct 40.1 (30.3-42.9) % MCV 96 (79-97) fl MCH 30 (28-32) pg MCHC 31 (30-34) % RDW 13.1 L (13.2-15.2) % Plt Count 387 (140-440) K/mm3 Lymph % (Auto) Faculty Dean Add Manual Diff Complete Total Counted 100 Seg Neutrophils % Faculty Dean Seg Neuts % (Manual) 49.0 (40.0-70.0) % Band Neutrophils % 0 % Lymphocytes % (Manual) 29.0 (13.4-35.0) % Reactive Lymphs % (Man) 10.0 % Monocytes % (Manual) 7.0 (0.0-7.3) % Eosinophils % (Manual) 2.0 (0.0-4.3) % Basophils % (Manual) 0 (0.0-1.8) % Metamyelocytes % 0 % Myelocytes % 0 % Promyelocytes % 2.0 % Blast Cells % 1.0 % Nucleated RBC % Not Reportable Seg Neutrophils # Man 2.6 (1.8-7.7) K/mm3 Band Neutrophils # 0.0 K/mm3 Lymphocytes # (Manual) 1.5 (1.2-5.4) K/mm3 Abs React Lymphs (Man) 0.5 K/mm3 Monocytes # (Manual) 0.4 (0.0-0.8) K/mm3 Eosinophils # (Manual) 0.1 (0.0-0.4) K/mm3 Basophils # (Manual) 0.0 (0.0-0.1) K/mm3 Metamyelocytes # 0.0 K/mm3 Myelocytes # 0.0 K/mm3 Promyelocytes # 0.1 K/mm3 Blast Cells # 0.3 K/mm3 WBC Morphology Not Reportable Hypersegmented Neuts Not Reportable Hyposegmented Neuts Not Reportable Hypogranular Neuts Not Reportable Smudge Cells Not Reportable Toxic Granulation Not Reportable Toxic Vacuolation Not Reportable Dohle Bodies Not Reportable Pelger-Huet Anomaly Not Reportable Willa Rods Not Reportable Platelet Estimate Consistent w auto Clumped Platelets Not Reportable Plt Clumps, EDTA Not Reportable Large Platelets Not Reportable Giant Platelets Not Reportable Platelet Satelliting Not Reportable Plt Morphology Comment Not Reportable RBC Morphology Not Reportable Dimorphic RBCs Not Reportable Polychromasia Not Reportable Hypochromasia Not Reportable Poikilocytosis Not Reportable Anisocytosis Not Reportable Microcytosis Not Reportable Macrocytosis Not Reportable Spherocytes Not Reportable Pappenheimer Bodies Not Reportable Sickle Cells Not Reportable Target Cells Not Reportable Tear Drop Cells Not Reportable Ovalocytes Not Reportable Helmet Cells Not Reportable [place] Bodies Not Reportable Gwinner Rings Not Reportable [place] Cells Not Reportable Bite Cells Not Reportable Crenated Cell Not Reportable Elliptocytes Not Reportable Acanthocytes (Spur) Not Reportable Rouleaux Not Reportable Hemoglobin C Crystals Not Reportable Schistocytes Not Reportable Malaria parasites Not Reportable Roland Bodies Not Reportable Hem Pathologist Commnt No Sodium 139 (137-145) mmol/L Potassium 4.4 (3.6-5.0) mmol/L Chloride 102.6 (98-107) mmol/L Carbon Dioxide 26 (22-30) mmol/L Anion Gap 15 mmol/L BUN 13 (7-17) mg/dL Creatinine 0.6 (0.6-1.2) mg/dL Estimated GFR > 60 ml/min BUN/Creatinine Ratio 22 % Glucose 87 (65-100) mg/dL Calcium 9.3 (8.4-10.2) mg/dL Troponin T < 0.010 (0.00-0.029) ng/mL - EKG Data -: EKG Interpreted by Ia EKG shows normal: sinus rhythm, axis, intervals, QRS complexes, ST-T waves Rate: normal - EKG Data Interpretation: normal EKG - Radiology Data ULTRASOUND ABDOMEN, LIMITED (RIGHT UPPER QUADRANT) INDICATION: RUQ pain. COMPARISON: None available. FINDINGS: Pancreas: The pancreas is not well-visualized. Liver: Normal. Gallbladder: Normal. Bile ducts: Normal. Common Bile Duct measures 3 mm. Free fluid: None. Additional Findings: Normal caliber of the abdominal aorta. Right kidney is unremarkable. IMPRESSION: 1. No sonographic abnormality of the right upper quadrant. 2. Please note the pancreas was not well visualized. Signer Name: Mariajose Lemon MD Signed: 04/17/2021 11:42 PM Workstation Name: [email or web address] App XR chest routine 2V INDICATION / CLINICAL INFORMATION: chest pain. COMPARISON: 06/13/2020. FINDINGS: SUPPORT DEVICES: None. HEART /PULMONARY VASCULATURE: No significant abnormality. LUNGS / PLEURA: 1.8 cm tubular radiodensity overlies the right hilar region, not definitely seen on lateral view, may be postoperative or may be external to the patient. No acute airspace consolidation. No sizable pleural effusion. No pneumothorax. ADDITIONAL FINDINGS: No significant additional findings. IMPRESSION: 1. No acute findings. 2. Incidental findings as above. Signer Name: Talha Monge MD Signed: 04/17/2021 8:32 PM Workstation Name: [id number] - Medical Decision Making Patient presenting with some mild right upper quadrant discomfort with nausea. No sonographic evidence of gallstones. Send the patient for to GI to rule out duodenal ulcers versus peptic ulcer disease versus gastritis. Patient given medication for symptomatic relief but discharged home. Critical care attestation.: If time is entered above; I have spent that time in minutes in the direct care of this critically ill patient, excluding procedure time. ED Disposition Clinical Impression: RUQ abdominal pain Disposition: 01 HOME / SELF CARE / HOMELESS Is pt being admited?: No Does the pt Need Aspirin: No Condition: Stable Instructions: Abdominal Pain, Adult, [id number], Peptic Ulcer, [id number] Referrals: [facility] [Provider Group] - 3-5 Days Time of Disposition: 00:37
[2021-04-18 00:44] VITALS: BP 128/70
--- NOTE | 2021-04-18 10:23 | Electrocardiograph Report ---
[facility] Test Date: 2021-04-17 Test Time: 19:58:44 Pat Name: RUTH APPLE Department: Room: Gender: F [employer] Sales Manager: SUSHIL : 1985 Requested By: SHIVA SUAZO Order Number: [id number] Reading MD: Darrion Wilson Measurements Intervals [place] Rate: 60 P: 27 [place]: 192 QRS: 32 QRSD: 91 T: 54 QT: 407 QTc: 408 Interpretive Statements Sinus rhythm No previous ECG available for comparison Electronically Signed On 04-18-2021 10:23:25 EST by Darrion Wilson
== END 2021-04-18 00:44 | disposition home or self-care (01) ==
LOC: ED 19:16
DX: R10.11 Right upper quadrant pain (principal); Z79.899 Other long term (current) drug therapy
CPT/HCPCS: 36415; 71046; 76705; 80048; 84484; 85007; 85025; 93005; 93010; 99284